=== PATIENT | female | born 1930 | race Caucasian/White ===

== ENCOUNTER → 2016-02-27 | Outpatient (REF) | payer MEDICARE, OTHER | LOC: M LABSMT 10:33 | PROVIDERS: ATTEND Nurse Practitioner Women's Health | DX: N39.0 Urinary tract infection, site not specified (principal) ==

== ENCOUNTER → 2016-03-13 | Outpatient (REF) | payer MEDICARE, OTHER ==
[2016-03-14 12:04] LABS: CALCIUM LEVEL 10.1 MG/DL (8.8-10.2); CREATININE FOR GFR 1.98 MG/DL (0.55-1.02); GLOMERULAR FILTRATION RATE 25.6 (>32); PHOSPHORUS LEVEL 2.6 MG/DL (2.5-4.9); POTASSIUM SERUM 4.5 MEQ/L (3.5-5.1)
== END ==
LOC: M SFHCCLAY 14:43
PROVIDERS: ATTEND Family Medicine
DX: E11.40 Type 2 diabetes mellitus with diabetic neuropathy, unspecified (principal)
CPT/HCPCS: 80069; 83036; G0463

== ENCOUNTER → 2016-04-15 | Outpatient (CLI) | payer MEDICARE, BC, OTHER ==
--- NOTE | 2016-04-15 17:06 | REP ---
BILATERAL MAMMOGRAM WITH DIAGNOSTIC MAMMOGRAM, LEFT BREAST AND LEFT BREAST ULTRASOUND: Bilateral mammogram and diagnostic mammogram left breast and left breast ultrasound. Bilateral mammography performed in the MLO and CC projections. COMPARISON: 12/25/2010. There appears to be a new spiculated nodule in the upper outer quadrant of the left breast. This measures approximately 1.6 cm in diameter. This is at the site of a reported palpable abnormality. No other definite suspicious mass is seen. No suspicious clusters of microcalcifications are seen. Real-time sonographic evaluation of upper outer quadrant of the left breast demonstrates a solid shadowing mass with irregular margins measuring 1.7 x 1.2 x 1.3 cm. IMPRESSION: ACR 4 suspicious. Spiculated mass is seen mammographically at the site of the reported palpable abnormality. This is also seen by ultrasound. Recommend ultrasound guided biopsy. ACR 4 suspicious. B-RADS/ACR category 4 mammogram. Suspicious abnormality - biopsy should be considered. Usually requires biopsy. This mammogram was interpreted with the aid of an FDA-approved computer-aided detection system. The patient states she had a clinical breast exam in 03/2016. The patient letter being requested is M4. Signed by Benjamin Rider MD 04/16/2016 08:04 P
== END ==
LOC: M RAD 15:12
PROVIDERS: ATTEND Family Medicine
DX: N63 Unspecified lump in breast (principal)
CPT/HCPCS: 76642; G0204

== ENCOUNTER → 2016-04-25 | Outpatient (REF) | payer MEDICARE, BC, OTHER | LOC: M LAB REF 09:26 | PROVIDERS: ATTEND Surgery | DX: C50.912 Malignant neoplasm of unspecified site of left female breast (principal) ==

== ENCOUNTER 2016-05-09 09:19 | Day surgery (SDC) | payer MEDICARE, BC, OTHER ==
[~2016-05-09] VITALS: Ht 157.5 cm; Wt 64.0 kg
[~2016-05-09 09:19] MED LIST: BISO5TAB2 PO; CALC500C8 PO; CRAN500C2 PO; DITR1TAB PO; GLIP5TAB8 PO; LEVO100T5 PO; LUTE6TAB2 PO; MAGN200T PO; METF1000 PO; VITA100041 PO; XANA0.25 PO
[2016-05-09] MEDS ORDERED: LR 1,000 ML IV SCH ×4 (09:30→20:00)
[2016-05-09] MEDS ORDERED: LIDOCAINE 5% (LIDODERM) PATCH TD ONE (09:30)
[2016-05-09] MEDS ORDERED: METHYLENE BLUE 0.5% (5MG/ML) 10 ML AMP (PROVAYBLUE)(Q9968 PER 1MG) As Ordered ONE (13:14)
[2016-05-09] MEDS ORDERED: ROCURONIUM BROMIDE 50 MG/5 ML VIAL As Ordered ONE (14:15)
[2016-05-09] MEDS ORDERED: MIDAZOLAM INJ 2 MG/2 ML VIAL (J2250) As Ordered ONE (14:15)
[2016-05-09] MEDS ORDERED: LIDOCAINE 2% INJ 100 MG/5 ML SDV (FOR ANES.) As Ordered ONE (14:15)
[2016-05-09] MEDS ORDERED: fentaNYL 100 MCG/2 ML INJECTION (J3010) As Ordered ONE (14:15)
[2016-05-09] MEDS ORDERED: PROPOFOL 200 MG/20 ML VIAL As Ordered ONE (14:15)
[2016-05-09] MEDS ORDERED: ePHEDrine SULFATE 25 MG/5 ML(5MG/ML) SYRINGE As Ordered ONE (14:30)
[2016-05-09] MEDS ORDERED: NEOSTIGMINE 1MG/ML 5 ML SYRINGE (J2710) As Ordered ONE (14:56)
[2016-05-09] MEDS ORDERED: GLYCOPYRROLATE INJ 0.2 MG/ML 2 ML VIAL As Ordered ONE (14:56)
[2016-05-09] MEDS ORDERED: ONDANSETRON 4MG/2ML VIAL (J2405) As Ordered ONE (15:02)
[2016-05-09] MEDS ORDERED: HYDROmorphone HCL 2 MG/ML 1ML VIAL (J1170) As Ordered ONE (15:03)
--- NOTE | 2016-05-09 16:11 | REP ---
LEFT BREAST LYMPHOSCINTIGRAPHY: The procedure was performed under the direct supervision of Dr. Etienne. The images were reviewed with Dr. Etienne. Using topical anesthetic and sterile technique 0.985 millicuries of Technetium 99 filtered sulfur colloid was injected subdermally in 8 fractionated periareolar injections. Images obtained 1 hour after injections show gee uptake in the upper outer quadrant of the left breast. IMPRESSION: Left breast lymphoscintigraphy. There is gee uptake in the upper outer quadrant of the left breast. Reviewed by COLIN Livingston 05/09/2016 04:55 PEdited and Signed by Jimmie Etienne MD 05/09/2016 05:46 P
[2016-05-09] MEDS ORDERED: ACETAMINOPHEN TAB 650MG DOSE (2X325MG) PO PRN (16:45)
[2016-05-09] MEDS ORDERED: ONDANSETRON 4MG/2ML VIAL (J2405) IV PRN ×2 (16:45→20:00)
[2016-05-09] MEDS ORDERED: fentaNYL 100 MCG/2 ML INJECTION (J3010) IV PRN (16:45)
[2016-05-09] MEDS ORDERED: PERCOCET 5MG/325MG TAB PO PRN (16:45)
[2016-05-09] MEDS ORDERED: METOCLOPRAMIDE INJ 10MG/2ML VIAL (J2765) As Ordered ONE (17:01)
[2016-05-09] MEDS ORDERED: METOCLOPRAMIDE INJ 10MG/2ML VIAL (J2765) IV PRN (17:15)
[2016-05-09] MEDS ORDERED: NORCO, ANEXSIA 5/325MG TABLET (HYDROcodone/ACETAMINOPHEN) PO ONE (18:00)
[2016-05-09 20:30] VITALS: BP 138/63
[2016-05-09 21:00] VITALS: BP 135/63
[2016-05-09] MEDS ORDERED: HumaLOG INSULIN (NovoLOG) PER UNIT SC SCH (21:00)
[2016-05-09 22:00] VITALS: BP 112/59
[2016-05-09] MEDS ORDERED: GLUCOSE 4 GM CHEW TABLET PO PRN (22:15)
[2016-05-09] MEDS ORDERED: DEXTROSE 50% 50 ML SYRINGE IV PRN (22:15)
[2016-05-09] MEDS ORDERED: GLUCAGON FOR INJ 1 MG VIAL (J1610) SC PRN (22:15)
[2016-05-09 23:00] VITALS: BP 117/58
--- NOTE | 2016-05-09 23:00 | RO ---
DATE OF PROCEDURE: 05/09/2016 PREOPERATIVE DIAGNOSIS: Infiltrating ductal carcinoma left breast. POSTOPERATIVE DIAGNOSIS: Infiltrating ductal carcinoma left breast. PROCEDURES PERFORMED: 1. Left axillary sentinel node biopsy. 2. Left partial mastectomy. SURGEON: Emile Padron MD PATIENT ASSESSMENT COORDINATOR: Dr. Ortiz ANESTHESIA: General. INDICATIONS FOR PROCEDURE: The patient is an 85-year-old woman who was noted to have a small nodule in the upper outer quadrant of the left breast. Mammogram confirmed an irregular density in the upper outer quadrant. An ultrasound-guided biopsy confirmed infiltrating ductal carcinoma. She is now for a sentinel node biopsy with partial mastectomy. OPERATIVE PROCEDURE: Prior to going to the operating room, the patient was sent x-ray where radioactive tracer was infiltrated in a periareolar distribution. Lymphoscintigraphy was obtained. She was then transported to the operating room. She was placed under general endotracheal anesthesia. Several aliquots of a 50/50 mixture of sterile saline and 0.50% methylene blue were then infiltrated subdermally in the upper outer aspect of the areola and then also in the upper outer quadrant of the breast near the known tumor. The breast chest wall, axilla and upper extremity were then prepped and draped in a sterile fashion. Inspection with the NeoProbe revealed a single focus of increased counts in the upper anterior axilla. An approximately 2.5 to 3 cm transverse skin incision was made at this point. Guided by the NeoProbe the incision was deepened through the subcutaneous fat and the axillary fascia was opened. A small node was identified and this was removed by careful dissection with some surrounding fibrofatty tissue. Hemoclips were used as needed and avascular tissues were divided with cautery or with scissors. The node was inspected and was small, less than a centimeter and revealed a gamma count of 3947 in 10 seconds. Reinspection of the axilla revealed no other areas of increased gamma counts. The background activity was 49 in 10 seconds. This node was sent to the lab for frozen section. While awaiting the frozen section; the axillary fascia was closed with chromic. The subcutaneous tissues were closed with chromic and the skin edges were approximated with a running subcuticular #4-[address] Crane contacted me by phone to report that the node was small and revealed no metastatic disease on frozen section. Attention was turned to the partial mastectomy. The nodule was palpable at about the 1:30 to 2-o'clock position, 6-7 cm from the edge of the areola. A radially oriented skin ellipse was outlined with a skin marker. The ellipse was approximately 6 to 7 cm in length x 2 to 3 cm in width maximally. The skin was incised with a scalpel and the dissection was then carried down into the breast tissue using the needle tip cautery. Taking a wide margin of tissue on all sides, the dissection was carried deep into the breast and eventually down to the pectoral muscle. The tissues were elevated off of the underlying pectoralis major with the pectoralis fascia. Laterally, the dissection extended into the tissues lateral to the pectoral major. The nodule was clearly palpable and was completely surrounded by breast tissue. Once the specimen was removed, it was marked with the Vector margin marker system and sent for permanent pathology. The wound was inspected and hemostasis was ensured. The tissues overlying the pectoralis muscle were elevated at the level of the pectoralis fascia an additional 4 to 5 cm to provide some tissue to mobilize into the area of the partial mastectomy. The tissues were closed in their deep aspect with buried #2-0 chromic sutures. Additional chromic sutures were placed in the more superficial tissues and the skin edges were approximated with some buried #3-0 Vicryl. The edges of the skin were approximated with a running subcuticular #4-0 Vicryl and Steri-Strips were then applied to both incisions. A bulky bandage was applied. The patient tolerated the procedure well with no apparent complication. She was awakened in the operating room, extubated and moved to the recovery room in stable condition.
[2016-05-10] VITALS: BP 141/64
[2016-05-10 01:00] VITALS: BP 134/66
[2016-05-10] MEDS: NORCO, ANEXSIA 5/325MG TABLET (HYDROcodone/ACETAMINOPHEN) PO PRN ×2 (01:14→11:50)
[2016-05-10 06:00] VITALS: BP 141/65
[2016-05-10] MEDS ORDERED: LEVOTHYROXINE 0.1 MG TAB (100 MCG) PO SCH (06:00)
[2016-05-10] MEDS ORDERED: glipiZIDE (GLUCOTROL) 5 MG TAB PO SCH (07:30)
[2016-05-10] MEDS ORDERED: HumaLOG INSULIN (NovoLOG) PER UNIT SC SCH (07:30)
[2016-05-10 08:20] VITALS: BP 118/58
[2016-05-10] MEDS ORDERED: oxyBUTYnin *DITROPAN XL* 5 MG TABCR PO SCH (09:00)
[2016-05-10] MEDS ORDERED: BISOPROLOL FUMARATE 5 MG TAB PO SCH (09:00)
[2016-05-10] MEDS ORDERED: NORC1TAB4 PO (11:25)
== END 2016-05-10 12:00 | disposition home or self-care (01) ==
LOC: M SDC 09:19 → M MS5PR 20:34 → M SDC 05-10 12:00
PROVIDERS: ATTEND Surgery
DX: C50.412 Malignant neoplasm of upper-outer quadrant of left female breast (principal); Z17.0 Estrogen receptor positive status [ER+]; E11.9 Type 2 diabetes mellitus without complications; E78.00 Pure hypercholesterolemia, unspecified; E03.9 Hypothyroidism, unspecified; K21.9 Gastro-esophageal reflux disease without esophagitis; F41.9 Anxiety disorder, unspecified; Z88.8 Allergy status to other drugs, medicaments and biological substances; Z79.899 Other long term (current) drug therapy
CPT/HCPCS: 19301; 38525; 78195; 88307; 88331; A9541; J1170; J2250; J2405; J2710; J2765; J3010; Q9968

== ENCOUNTER → 2016-06-04 | Outpatient (REF) | payer MEDICARE, OTHER ==
[~2016-06-04] MED LIST changes: +NORC1TAB4 PO
[2016-06-04 19:30] LABS: CARCINOEMBRYONIC ANTIGEN 2.2 NG/ML (<2.5)
== END ==
LOC: M LAB REF 16:54
PROVIDERS: ATTEND Internal Medicine Medical Oncology
DX: C50.919 Malignant neoplasm of unspecified site of unspecified female breast (principal)

== ENCOUNTER → 2016-06-05 | Outpatient (REF) | payer MEDICARE, OTHER | LOC: M SMT 17:03 | PROVIDERS: ATTEND Nurse Practitioner Women's Health | DX: R30.0 Dysuria (principal) | CPT/HCPCS: 81001; 87088; 87186; G0463 ==

== ENCOUNTER → 2016-06-25 | Outpatient (CLI) | payer MEDICARE, BC ==
--- NOTE | 2016-06-27 14:57 | DEXA ---
AP SPINE L1 - L4 1.156 -0.3 1.6 LT FEMUR TOTAL 0.851 -1.2 1.0 RT FEMUR TOTAL 0.878 -1.1 1.2 TOTAL BODY TOTAL OTHER DUAL FEMUR FRAX* ASSESSMENT Risk factors: History of adult fracture, rheumatoid arthritis. 10 year probability of fracture Major osteoporotic fracture 32.1 % Hip fracture 11.4 % COMMENTS: Normal bone densitometry of the spine. There is low bone density of the left hip. There is low bone density of the right hip. There is degenerative change in the spine which may artificially elevate the BMD. FOLLOW-UP: Recommendation for the next bone density exam: 2 years. CHINTAN
== END ==
LOC: M WHC 14:47
PROVIDERS: ATTEND Internal Medicine Medical Oncology
DX: C50.919 Malignant neoplasm of unspecified site of unspecified female breast (principal); M85.88 Other specified disorders of bone density and structure, other site; M85.851 Other specified disorders of bone density and structure, right thigh; M85.852 Other specified disorders of bone density and structure, left thigh

== ENCOUNTER → 2016-06-26 | Outpatient (CLI) | payer MEDICARE, BC, OTHER ==
[~2016-06-26] MED LIST changes: +GASTROGRAFIN SOLUTION 30ML (Q9963) As Ordered ONE; +ISOVUE-370 76% 100ML VIAL (Q9967) As Ordered ONE
--- NOTE | 2016-06-26 11:50 | REP ---
Clinical: Breast cancer. Staging. Findings: Lung bases demonstrate chronic changes including subtle non-solid density in the left lower lobe and right lower lobe which are otherwise nonspecific. Liver, pancreas, gallbladder, bilateral adrenal glands and kidneys are relatively normal for noncontrast evaluation. The spleen demonstrates a vague 1.9 cm hypodensity which may reflect splenic cyst. The enteric system including stomach, small and large bowel is without obstruction or acute inflammatory process. Normal terminal ileum and appendix identified in the right lower quadrant. Scattered colonic diverticula noted without acute diverticulitis. Pelvis demonstrates normal bladder with small amount of gas which may be related to prior Turner catheterization as well as age-appropriate uterus/adnexa. No ascites. No free air. No significant adenopathy. No obvious abdominal pelvic mass lesion. Atherosclerotic changes of the aorta noted without aneurysm. Musculoskeletal structures demonstrate age-related degenerative changes without obvious osseous mass lesion/metastases. Impression: 1. Subtle non solid density in the left lower lobe and smaller non solid density in the right lower lobe are nonspecific and may warrant 3-6 months follow-up. 2. 1.9 cm splenic hypodensity likely cyst may be evaluated by ultrasound. 3. Colonic diverticula without acute diverticulitis. 4. No ascites, mass lesion or adenopathy. Signed by Eral Monaco MD 06/26/2016 11:42 A
--- NOTE | 2016-06-26 11:55 | REP ---
Clinical: Breast cancer. Staging. Comparison: None. Findings: The lung feliz demonstrate scattered chronic age-related changes primarily noted at the bilateral bases including right middle lobe and lingula. No consolidation, discrete nodule or mass lesion is appreciated. However, subtle scattered non solid ground-glass densities measuring roughly up to 1.5 cm in the left lower lobe are identified and while these likely represent chronic change, active pathology cannot be excluded. No pleural effusion/reaction. No pneumothorax. Tracheobronchial tree is patent. Mediastinum demonstrates atherosclerotic changes and mild ectasia to the thoracic aorta along with mild cardiomegaly and atherosclerotic changes of the coronary arteries. No pericardial effusion. No axillary, hilar, or mediastinal adenopathy. Musculoskeletal structures demonstrate age-related degenerative changes without definite osseous metastatic disease. Impression: 1. Subtle scattered chronic age-related changes. 2. Very subtle a few non solid ground-glass densities likely represent associated chronic changes although given the patient's diagnosis follow-up examination in 3-6 months may be warranted. Signed by Earl Monaco MD 06/26/2016 11:47 A
== END ==
LOC: M RAD 09:05
PROVIDERS: ATTEND Internal Medicine Medical Oncology
DX: C50.912 Malignant neoplasm of unspecified site of left female breast (principal)
CPT/HCPCS: 71250; 74176; Q9963

== ENCOUNTER → 2016-06-27 | Outpatient (CLI) | payer MEDICARE, BC, OTHER ==
[~2016-06-27] MED LIST changes: -GASTROGRAFIN SOLUTION 30ML (Q9963) As Ordered ONE; -ISOVUE-370 76% 100ML VIAL (Q9967) As Ordered ONE
--- NOTE | 2016-06-28 13:52 | RADONC ---
RADIATION ONCOLOGY CONSULTATION NOTE DATE: 06/27/2016 CHART NUMBER: [id number] DIAGNOSIS: Left breast cancer. STAGE: IA, [id number]. ECOG PERFORMANCE STATUS: 0. CONSULTATION NOTE: Ms. Aquino is a very pleasant 85-year-old white female with the diagnosis of a stage IA, [id number], well-differentiated infiltrating ductal carcinoma of the left breast who is presenting to us today status post lumpectomy and sentinel lymph node biopsy for consideration of postoperative radiation therapy for conservative breast management. HISTORY OF PRESENT ILLNESS: The patient was in the usual state of health until April of this year when she noticed a small lump in her left breast in the upper outer quadrant. A mammogram was done on 04/15/2016 as well as an ultrasound which revealed a 1.6 cm mass in the upper outer quadrant. On 05/09/2016 the patient underwent lumpectomy and sentinel lymph node biopsy. Pathology revealed a 1.4 cm well-differentiated infiltrating ductal carcinoma of the left breast. All margins of resection were negative. There was no lymph vascular invasion seen. The tumor was estrogen receptor and progesterone receptor positive and HER2 negative. There was no in situ component found. One sentinel lymph node was sampled and it was negative for malignancy. The patient has done well since surgery and was seen by Dr. Easley, the medical oncologist, for his expert opinion. She has been given hormonal therapy. She is now presenting to me for discussion of possible postoperative radiation therapy. IMAGING: I have personally reviewed the patients CT scans of the chest, abdomen and pelvis done on 06/26/2016 which showed some scattered chronic changes and a few ground-glass densities in the lung. I let the patient know that a routine followup was recommended for 3-6 months. This will be followed by Dr. Easley. I had a lengthy discussion with the patient with regards to external beam radiation therapy. We discussed logistics of treatment planning, simulation and subsequent fractionated daily radiation treatments. We discussed the potential benefits as well as possible acute and chronic sequelae of external beam radiation therapy. We discussed the more recent national comprehensive cancer network recommendations and guidelines. I have given the patient a copy of the guidelines which report that breast irradiation may be omitted in patients greater than 70 years of age with estrogen receptor positive, clinically node negative, T1 tumors who receive adjuvant endocrine therapy. This category includes this patient. She therefore may chose to omit radiation. Indeed the recommendation is for the patient's over 70 and this patient is actually 85 years old. The patient is aware that if she omits radiation close followup with her medical oncologist is indicated. Of course she will be having that follow-up nonetheless since she is receiving her endocrine therapy and is being followed for her CAT scan reports. I did make the patient aware that since radiation is the established standard of care following lumpectomy that we are available to her should she choose radiation. In light of this, I have not set this patient up for any followup in our office or initiation of treatment planning. At the conclusion of a consultation that took more than an hour the patient has decided at this point not to pursue radiation and to continue with her endocrine therapy. She is aware that she can contact me should she change her mind. cc: MD Obinna Lu MD
== END ==
LOC: M ONCR 13:14
PROVIDERS: ATTEND Radiology Radiation Oncology
DX: C50.912 Malignant neoplasm of unspecified site of left female breast (principal)

== ENCOUNTER → 2016-07-24 | Outpatient (REF) | payer MEDICARE, BC, OTHER ==
[~2016-07-24] MED LIST changes: -METF1000 PO; +METF10004 PO; +VITA-182 PO; -VITA100041 PO
[2016-07-25 12:05] LABS: CALCIUM LEVEL 9.3 MG/DL (8.8-10.2); CREATININE FOR GFR 1.81 MG/DL (0.55-1.02); GLOMERULAR FILTRATION RATE 28.4 (>32); POTASSIUM SERUM 4.1 MEQ/L (3.5-5.1)
== END ==
LOC: M SFHCCLAY 15:43
PROVIDERS: ATTEND Family Medicine
DX: E11.9 Type 2 diabetes mellitus without complications (principal); N18.3 Chronic kidney disease, stage 3 (moderate)
CPT/HCPCS: 36415; 80048; 83036; G0463

== ENCOUNTER → 2016-08-20 | Outpatient (REF) | payer MEDICARE, OTHER | LOC: M LABSMT 13:41 → M LABDRAWC 13:44 | PROVIDERS: ATTEND Nurse Practitioner Women's Health | DX: R30.0 Dysuria (principal) ==

== ENCOUNTER → 2016-09-18 | Outpatient (REF) | payer MEDICARE, OTHER ==
[2016-09-18 20:30] LABS: MICROSCOPIC INDICATED? MAN YES (NO)
[2016-09-18 21:23] LABS: SQUAMOUS EPITHELIAL CELL URINE LARGE AMOUNT /hpf (SMALL AMT); TRANSITIONAL EPI CELLS, URINE MOD AMOUNT /hpf; WBC, URINE TNTC /hpf (0-3)
[2016-09-18 21:24] LABS: BACTERIA, URINE LARGE AMOUNT; HYALINE CAST, URINE NONE SEEN /lpf (0-1); MICROSCOPIC EXAM PERFORMED
== END ==
LOC: M LABSMT 10:11
PROVIDERS: ATTEND Nurse Practitioner Women's Health
DX: N39.0 Urinary tract infection, site not specified (principal)

== ENCOUNTER → 2016-10-09 | Outpatient (REF) | payer MEDICARE, BC, OTHER ==
[2016-10-10 12:25] LABS: ALBUMIN 3.4 GM/DL (3.2-5.2); ALBUMIN/GLOBULIN RATIO 0.87 (1.00-1.93); BILIRUBIN,TOTAL 0.3 MG/DL (0.2-1.0); CALCIUM LEVEL 9.9 MG/DL (8.8-10.2); CREATININE FOR GFR 2.17 MG/DL (0.55-1.02); GLOMERULAR FILTRATION RATE 22.9 (>32); POTASSIUM SERUM 4.6 MEQ/L (3.5-5.1); TOTAL PROTEIN 7.3 GM/DL (6.4-8.2)
[2016-10-10 12:29] LABS: BASO # 0.1 K/mm3 (0.0-0.2); BASO % 0.8 % (0.0-1.0); EOS # 0.5 K/mm3 (0.0-0.50); EOS % 5.3 % (0.0-3.0); LARGE UNSTAINED CELL # 0.1 K/mm3 (0.0-0.4); LARGE UNSTAINED CELL % 0.9 % (0.0-4.0); LYMPH # 1.7 K/mm3 (1.5-4.5); LYMPH % 15.5 % (24.0-44.0); MEAN CORPUSCULAR HEMOGLOBIN 31.3 pg (27.0-33.0); MEAN CORPUSCULAR HGB CONC 32.5 g/dl (32.0-36.5); MEAN CORPUSCULAR VOLUME 96.4 fl (80.0-96.0); MONO # 0.3 K/mm3 (0.0-0.8); MONO % 3.4 % (0.0-5.0); NEUTROPHILS # 7.5 K/mm3 (1.8-7.7); NEUTROPHILS % 74.1 % (36.0-66.0); PLATELET COUNT, AUTOMATED 294 k/mm3 (150-450); RED CELL DISTRIBUTION WIDTH 13.9 % (11.5-14.5); WHITE BLOOD COUNT 10.1 K/mm3 (4.0-10.0)
== END ==
LOC: M SFHCCLAY 14:42
PROVIDERS: ATTEND Family Medicine
DX: R46.2 Strange and inexplicable behavior (principal); E11.9 Type 2 diabetes mellitus without complications; E03.9 Hypothyroidism, unspecified
CPT/HCPCS: 80053; 83036; 84443; 85025; G0463

== ENCOUNTER → 2016-10-11 | Outpatient (CLI) | payer MEDICARE, BC, OTHER ==
--- NOTE | 2016-10-11 20:29 | REP ---
MR BRAIN WITHOUT CONTRAST: HISTORY: Altered mental status. Areas of increased signal intensity on T2 weighted images are present in the right basal ganglia. These represent old lacunar infarctions. Areas of increased signal intensity on T2 weighted images are present in the periventricular and subcortical white matter. This represents small vessel ischemic disease. A 7 mm focus of increased signal intensity on T2 weighted images is present in the cerebellar vermis. There is no intraparenchymal hemorrhage, acute infarct or midline shift. The ventricular system and cortical sulci are dilated consistent with moderate volume loss. There is no extracerebral collection. The sinuses are clear. IMPRESSION:1. 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 2. Small vessel ischemic disease. 3. There is a 7 mm focus of increased signal intensity in the cerebellar vermis. This may represent an area of small vessel ischemic disease , however , a small mass can not be excluded. Contrast enhanced MR is recommended for further evaluation. 4. Moderate volume loss. Signed by Esdras Peter MD 10/15/2016 08:18 A
== END ==
LOC: M RAD 15:06
PROVIDERS: ATTEND Family Medicine
DX: R40.4 Transient alteration of awareness (principal); Z86.73 Personal history of transient ischemic attack (TIA), and cerebral infarction without residual deficits; I67.82 Cerebral ischemia

== ENCOUNTER → 2016-10-28 | Outpatient (CLI) | payer MEDICARE, BC ==
--- NOTE | 2016-10-28 15:58 | REP ---
Right hand four views: There is no acute fracture or dislocation. 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 Mineralization is normal. There are no foreign bodies or calcifications.
== END ==
LOC: M CLY 15:13
PROVIDERS: ATTEND Family Medicine
DX: M19.041 Primary osteoarthritis, right hand (principal)
CPT/HCPCS: 73130; G0463

== ENCOUNTER → 2016-11-20 | Outpatient (REF) | payer MEDICARE, OTHER ==
[2016-11-20 18:52] LABS: CALCIUM LEVEL 10.2 MG/DL (8.8-10.2); CREATININE FOR GFR 2.02 MG/DL (0.55-1.02); FREE T4 1.49 NG/DL (0.76-1.46); GLOMERULAR FILTRATION RATE 24.9 (>32)
== END ==
LOC: M SFHCCLAY 13:14
PROVIDERS: ATTEND Family Medicine
DX: N18.3 Chronic kidney disease, stage 3 (moderate) (principal); E03.9 Hypothyroidism, unspecified

== ENCOUNTER → 2017-01-14 | Outpatient (REF) | payer MEDICARE, OTHER ==
[2017-01-14 18:19] LABS: CALCIUM LEVEL 9.6 MG/DL (8.8-10.2); CREATININE FOR GFR 1.94 MG/DL (0.55-1.02); GLOMERULAR FILTRATION RATE 26.1 (>32); POTASSIUM SERUM 4.3 MEQ/L (3.5-5.1)
== END ==
LOC: M SFHCCLAY 10:05
PROVIDERS: ATTEND Family Medicine
DX: E11.9 Type 2 diabetes mellitus without complications (principal)

== ENCOUNTER → 2017-02-17 | Outpatient (REF) | payer MEDICARE, OTHER ==
[2017-02-18 07:18] LABS: CARCINOEMBRYONIC ANTIGEN 2.6 NG/ML (<2.5)
[2017-02-19 08:16] LABS: CA 27.29 49.4 U/mL (0.0-38.6)
== END ==
LOC: M LAB REF 18:09
DX: C50.019 Malignant neoplasm of nipple and areola, unspecified female breast (principal)
CPT/HCPCS: 82378

== ENCOUNTER → 2017-02-19 | Outpatient (REF) | payer MEDICARE, OTHER | LOC: M SFHCCLAY 15:51 | DX: E11.9 Type 2 diabetes mellitus without complications (principal); R30.0 Dysuria | CPT/HCPCS: 87186 ==

== ENCOUNTER → 2017-04-02 | Outpatient (REF) | payer MEDICARE, OTHER ==
[2017-04-03 12:27] LABS: ANION GAP 7 MEQ/L (8-16); BLOOD UREA NITROGEN 40 MG/DL (7-18); CARBON DIOXIDE LEVEL 23 MEQ/L (21-32); CHLORIDE LEVEL 111 MEQ/L (98-107); CREATININE FOR GFR 2.16 MG/DL (0.55-1.30); GLOMERULAR FILTRATION RATE 23.1 (>32); GLUCOSE, FASTING 272 MG/DL (70-100); POTASSIUM SERUM 3.9 MEQ/L (3.5-5.1); SODIUM LEVEL 141 MEQ/L (136-145)
[2017-04-03 12:28] LABS: ALBUMIN 3.9 GM/DL (3.2-5.2); CALCIUM LEVEL 9.3 MG/DL (8.8-10.2); PHOSPHORUS LEVEL 3.3 MG/DL (2.5-4.9)
== END ==
LOC: M SFHCCLAY 15:42
DX: N18.3 Chronic kidney disease, stage 3 (moderate) (principal)
CPT/HCPCS: 80069

== ENCOUNTER → 2017-05-27 | Outpatient (CLI) | payer MEDICARE, OTHER | LOC: M RAD 13:57 | DX: Z12.39 Encounter for other screening for malignant neoplasm of breast (principal); C50.412 Malignant neoplasm of upper-outer quadrant of left female breast | CPT/HCPCS: 77066 ==

== ENCOUNTER → 2017-06-06 | Outpatient (REF) | payer MEDICARE, OTHER ==
[2017-06-06 16:48] LABS: ESTIMATED AVERAGE GLUCOSE 223 MG/DL (60-110); HEMOGLOBIN A1c 9.4 %
[2017-06-06 17:03] LABS: ALBUMIN 3.7 GM/DL (3.2-5.2); ALBUMIN/GLOBULIN RATIO 0.95 (1.00-1.93); ALKALINE PHOSPHATASE 199 U/L (45-117); ALT/SGPT 19 U/L (12-78); ANION GAP 7 MEQ/L (8-16); AST/SGOT 11 U/L (7-37); BILIRUBIN,TOTAL 0.3 MG/DL (0.2-1.0); BLOOD UREA NITROGEN 33 MG/DL (7-18); CALCIUM LEVEL 9.6 MG/DL (8.8-10.2); CARBON DIOXIDE LEVEL 24 MEQ/L (21-32); CHLORIDE LEVEL 108 MEQ/L (98-107); FREE T4 0.31 NG/DL (0.76-1.46); GLOMERULAR FILTRATION RATE 21.5 (>32); GLUCOSE, FASTING 241 MG/DL (70-100); POTASSIUM SERUM 4.4 MEQ/L (3.5-5.1); SODIUM LEVEL 139 MEQ/L (136-145); TOTAL PROTEIN 7.6 GM/DL (6.4-8.2)
== END ==
LOC: M SFHCCLAY 13:37
DX: I10 Essential (primary) hypertension (principal); E11.9 Type 2 diabetes mellitus without complications; E03.9 Hypothyroidism, unspecified
CPT/HCPCS: 84443

== ENCOUNTER → 2017-07-04 | Outpatient (REF) | payer MEDICARE, OTHER | LOC: M SFHCCLAY 14:26 | DX: N30.00 Acute cystitis without hematuria (principal) | CPT/HCPCS: 87186 ==

== ENCOUNTER → 2017-10-23 | Outpatient (REF) | payer MEDICARE, OTHER | LOC: M SFHCWAGY 17:19 | DX: N30.00 Acute cystitis without hematuria (principal) | CPT/HCPCS: 87186 ==

== ENCOUNTER → 2018-02-16 | Outpatient (REF) | payer MEDICARE, OTHER ==
[~2018-02-16] MED LIST changes: +LEVO125T4 PO
[2018-02-16 17:16] LABS: ALBUMIN 3.5 GM/DL (3.2-5.2); BILIRUBIN,TOTAL 0.4 MG/DL (0.2-1.0); CALCIUM LEVEL 9.4 MG/DL (8.8-10.2); CREATININE FOR GFR 1.92 MG/DL (0.55-1.30); FREE T4 1.34 NG/DL (0.76-1.46); GLOMERULAR FILTRATION RATE 26.4 (>32); POTASSIUM SERUM 4.3 MEQ/L (3.5-5.1); THYROID STIMULATING HORMONE 0.189 uIU/ML (0.358-3.740); TOTAL PROTEIN 7.3 GM/DL (6.4-8.2)
[2018-02-16 18:28] LABS: HEMOGLOBIN A1c 9.7 %
== END ==
LOC: M SFHCCLAY 10:17
PROVIDERS: ATTEND Family Medicine
DX: E11.9 Type 2 diabetes mellitus without complications (principal); E03.9 Hypothyroidism, unspecified

== ENCOUNTER → 2018-04-29 | Outpatient (REF) | payer MEDICARE, OTHER | LOC: M SFHCCLAY 11:22 | PROVIDERS: ATTEND Family Medicine | DX: N30.00 Acute cystitis without hematuria (principal) ==

== ENCOUNTER → 2018-06-02 | Outpatient (CLI) | payer MEDICARE, BC, OTHER ==
[~2018-06-02] MED LIST changes: -NORC1TAB4 PO; +NORC1TAB7 PO
--- NOTE | 2018-06-02 15:04 | REPMRS ---
Patient History The patient states she had a clinical breast exam in February 2018.Family history of ovarian cancer at age 55 in daughter. Malignant ultrasound-guided core biopsy of the left breast, April 25, 2016. 3D TOMOSYNTHESIS WAS PERFORMED. Digital Mammo Screening Bilat: June 02, 2018 - Exam #: [id number] Bilateral CC and MLO view(s) were taken. Technologist: Gabrielle Jacobson, Technologist Prior study comparison: May 27, 2017, digital mammo diagnostic bilateral performed at [facility]. April 15, 2016, digital mammo diagnostic bilateral performed at [facility]. FINDINGS: There are scattered fibroglandular densities. There has been no change in the appearance of the mammogram from the prior studies. There is a mild amount of residual fibroglandular tissue which is fairly symmetric. There is no interval development of dominant mass, architectural distortion, or clustered microcalcification suggestive of malignancy. Assessment: BI-RADS/ACR category 1 mammogram. Negative Mammogram. Recommendation Routine screening mammogram in 1 year (for women over age 40). This mammogram was interpreted with the aid of an FDA-approved computer-aided dectection system. Electronically Signed By: Benjamin Rider MD 06/02/18 [id number]
== END ==
LOC: M RAD 13:21
PROVIDERS: ATTEND Internal Medicine Hematology & Oncology
DX: Z12.31 Encounter for screening mammogram for malignant neoplasm of breast (principal); Z85.3 Personal history of malignant neoplasm of breast

== ENCOUNTER → 2018-08-26 | Outpatient (REF) | payer MEDICARE, OTHER ==
[~2018-08-26] MED LIST changes: +CALC500T60 PO; +CRANPOW2 XX
[2018-08-27 12:23] LABS: ALBUMIN 3.6 GM/DL (3.2-5.2); BILIRUBIN,TOTAL 0.3 MG/DL (0.2-1.0); CALCIUM LEVEL 10.1 MG/DL (8.8-10.2); CREATININE FOR GFR 2.18 MG/DL (0.55-1.30); FREE T4 1.05 NG/DL (0.76-1.46); GLOMERULAR FILTRATION RATE 22.8 (>32); POTASSIUM SERUM 4.4 MEQ/L (3.5-5.1); THYROID STIMULATING HORMONE 0.556 uIU/ML (0.358-3.740); TOTAL PROTEIN 7.2 GM/DL (6.4-8.2)
[2018-08-27 13:19] LABS: HEMOGLOBIN A1c 9.5 %
== END ==
LOC: M SFHCCLAY 13:54
PROVIDERS: ATTEND Family Medicine
DX: E11.9 Type 2 diabetes mellitus without complications (principal); E03.9 Hypothyroidism, unspecified

== ENCOUNTER 2018-11-03 17:57 | Emergency (ER) | payer MEDICARE, OTHER ==
[2018-11-03 18:22] LABS: BASO # 0.1 10^3/uL (0.0-0.2); BASO % 0.6 % (0.0-1.0); EOS # 0.2 10^3/uL (0.0-0.5); EOS % 1.9 % (0.0-3.0); HEMATOCRIT 45.4 % (36.0-47.0); HEMOGLOBIN 14.9 g/dl (12.0-15.5); LYMPH # 1.6 10^3/uL (1.5-5.0); LYMPH % 19.8 % (24.0-44.0); MEAN CORPUSCULAR HEMOGLOBIN 30.3 pg (27.0-33.0); MEAN CORPUSCULAR HGB CONC 32.8 g/dl (32.0-36.5); MEAN CORPUSCULAR VOLUME 92.3 fl (80.0-96.0); MONO # 0.4 10^3/uL (0.0-0.8); MONO % 4.7 % (0.0-5.0); NEUTROPHILS # 5.8 10^3/uL (1.5-8.5); NEUTROPHILS % 72.7 % (36.0-66.0); PLATELET COUNT, AUTOMATED 248 10^3/uL (150-450); RED BLOOD COUNT 4.92 10^6/uL (4.00-5.40); WHITE BLOOD COUNT 7.9 10^3/uL (4.0-10.0)
[2018-11-03] MEDS ORDERED: HEPARIN DRIP 25,000 UNITS in IV 1 EA IV SCH (18:27)
[2018-11-03] MEDS ORDERED: CLOPIDOGREL 300 MG TAB (PLAVIX) PO STA (18:27)
--- NOTE | 2018-11-03 18:29 | REP ---
Portable chest x-ray: Single view. History: Chest pain. Findings: There are old healed rib fractures on the right. There is diffuse osteopenia. EKG monitoring electrodes are seen. Heart is not enlarged. The aorta is calcific. Pulmonary vasculature is not increased. No focal infiltrate is seen. Impression: No active disease. Old healed right-sided rib fractures. Osteoporosis. Electronically Signed by Petar Caraballo MD 11/03/2018 06:20 P
[2018-11-03] MEDS ORDERED: HEPARIN SOD (PORCINE) 5000 UNITS/ML VIAL IV ONE (18:30)
[2018-11-03 18:35] LABS: INR 0.95; PARTIAL THROMBOPLASTIN TIME 28.7 SECONDS (25.0-38.4); PROTHROMBIN TIME 12.4 SECONDS (11.8-14.0)
[2018-11-03 18:53] LABS: CALCIUM LEVEL 10.4 MG/DL (8.8-10.2); CK-MB VALUE MASS 1.4 NG/ML (<3.6); CREATININE FOR GFR 1.99 MG/DL (0.55-1.30); GLOMERULAR FILTRATION RATE 25.2 (>32); MB/CK RELATIVE INDEX 4.52 (< OR =4); POTASSIUM SERUM 4.2 MEQ/L (3.5-5.1); TROPONIN I 0.06 NG/ML (< 0.10)
[2018-11-03 19:15] VITALS: BP 168/76
--- NOTE | 2018-11-04 20:35 | ECGEPIP ---
[facility] - ED Test Date: 2018-11-03 Pat Name: PETER DA SILVA Department: Room: - Gender: Female Project Landscape Architect: TC : [id number] Requested By: SUZY Flores Order Number: [id number] Reading MD: Josefina Jean Baptiste Measurements Intervals [place] Rate: 82 P: 38 UT: 176 QRS: 22 QRSD: 110 T: 50 QT: 379 QTc: 444 Interpretive Statements SINUS RHYTHM INFERIOR MYOCARDIAL INFARCTION, ACUTE AK CLINICAL CORRELATION Electronically Signed on 11-04-2018 20:35:37 EDT by Josefina Jean Baptiste
== END 2018-11-03 19:17 | disposition short-term general hospital (02) ==
LOC: M ED 17:57
DX: I21.3 ST elevation (STEMI) myocardial infarction of unspecified site (principal); E11.9 Type 2 diabetes mellitus without complications; I10 Essential (primary) hypertension; E78.5 Hyperlipidemia, unspecified; Z88.5 Allergy status to narcotic agent; Z88.8 Allergy status to other drugs, medicaments and biological substances; Z79.899 Other long term (current) drug therapy; Z79.84 Long term (current) use of oral hypoglycemic drugs

== ENCOUNTER → 2018-11-18 | Outpatient (REF) | payer MEDICARE, OTHER | LOC: M SFHCCLAY 12:53 | PROVIDERS: ATTEND Family Medicine | DX: R30.0 Dysuria (principal) | CPT/HCPCS: 87088; 87186; G0463 ==

== ENCOUNTER → 2018-11-20 | Outpatient (REF) | payer MEDICARE, OTHER ==
[2018-11-20 17:47] LABS: CALCIUM LEVEL 10.1 MG/DL (8.8-10.2); CREATININE FOR GFR 2.06 MG/DL (0.55-1.30); GLOMERULAR FILTRATION RATE 24.2 (>32); POTASSIUM SERUM 3.8 MEQ/L (3.5-5.1)
== END ==
LOC: M LABDRAWC 16:15
PROVIDERS: ATTEND Internal Medicine Interventional Cardiology
DX: N18.9 Chronic kidney disease, unspecified (principal); E11.9 Type 2 diabetes mellitus without complications

== ENCOUNTER → 2019-01-01 | Outpatient (REF) | payer MEDICARE, OTHER | LOC: M SFHCCLAY 16:22 | PROVIDERS: ATTEND Family Medicine | DX: R39.15 Urgency of urination (principal); Z23 Encounter for immunization | CPT/HCPCS: 81002; 87088; 87186; 90682; G0008; G0463 ==

== ENCOUNTER → 2019-01-04 | Outpatient (REF) | payer MEDICARE, OTHER | LOC: M SFHCCLAY 07:08 | PROVIDERS: ATTEND Family Medicine | DX: R39.15 Urgency of urination (principal) ==

== ENCOUNTER → 2019-01-25 | Outpatient (CLI) | payer MEDICARE, BC, OTHER ==
--- NOTE | 2019-01-25 14:57 | REP ---
URINARY TRACT SONOGRAPHY: HISTORY: Chronic kidney disease stage IV. FINDINGS: Scanning at the level of the urinary bladder shows no abnormality. Emptying ureteral jets are confirmed on color Doppler interrogation of the bladder lumen bilaterally. Renal cortical echogenicity pattern is increased bilaterally, consistent with chronic medical renal disease. There is no evidence of hydronephrosis on either side. There is a 0.9 x 1.1 x 0.9 cm cyst in the lower pole of the right kidney. No renal mass or calculus is seen. Right renal dimensions are 8.9 x 4.5 x 3.5 cm. The left kidney measures 9.5 x 4.0 x 4.4 cm. IMPRESSION: Increased renal cortical echogenicity pattern consistent with chronic medical renal disease. Small cyst lower pole right kidney. No hydronephrosis. Electronically Signed by Petar Caraballo MD 01/25/2019 03:33 P
== END ==
LOC: M RAD 13:48
PROVIDERS: ATTEND Internal Medicine Nephrology
DX: N18.4 Chronic kidney disease, stage 4 (severe) (principal)

== ENCOUNTER → 2019-07-08 | Outpatient (REF) | payer MEDICARE, OTHER | LOC: M LAB REF 18:18 | PROVIDERS: ATTEND Internal Medicine Nephrology | DX: N39.0 Urinary tract infection, site not specified (principal) ==

== ENCOUNTER → 2019-10-07 | Outpatient (REF) | payer MEDICARE, OTHER ==
[2019-10-07 20:20] LABS: ALBUMIN 3.2 GM/DL (3.2-5.2); BILIRUBIN,TOTAL 0.6 MG/DL (0.2-1.0); CALCIUM LEVEL 9.7 MG/DL (8.8-10.2); CREATININE FOR GFR 1.77 MG/DL (0.55-1.30); FREE T4 1.8 NG/DL (0.76-1.46); GLOMERULAR FILTRATION RATE 28.8 (>32); POTASSIUM SERUM 4.4 MEQ/L (3.5-5.1); THYROID STIMULATING HORMONE 0.157 uIU/ML (0.358-3.740); TOTAL PROTEIN 7.5 GM/DL (6.4-8.2)
== END ==
LOC: M LAB REF 19:13
PROVIDERS: ATTEND Nurse Practitioner Family
DX: E11.9 Type 2 diabetes mellitus without complications (principal)

== ENCOUNTER → 2020-06-06 | Outpatient (REF) | payer MEDICARE, OTHER ==
[2020-06-07 11:33] LABS: BASO # 0.1 10^3/uL (0.0-0.2); BASO % 1.2 % (0.0-1.0); EOS # 0.3 10^3/uL (0.0-0.5); EOS % 5.3 % (0.0-3.0); HEMATOCRIT 43.5 % (36.0-47.0); HEMOGLOBIN 13.9 g/dl (12.0-15.5); LYMPH # 1.3 10^3/uL (1.5-5.0); LYMPH % 22.5 % (24.0-44.0); MEAN CORPUSCULAR HEMOGLOBIN 30.8 pg (27.0-33.0); MEAN CORPUSCULAR VOLUME 96.5 fl (80.0-96.0); MONO # 0.7 10^3/uL (0.0-0.8); MONO % 11.4 % (2.0-8.0); NEUTROPHILS # 3.5 10^3/uL (1.5-8.5); NEUTROPHILS % 59.3 % (36.0-66.0); PLATELET COUNT, AUTOMATED 128 10^3/uL (150-450); RED BLOOD COUNT 4.51 10^6/uL (4.00-5.40); WHITE BLOOD COUNT 5.9 10^3/uL (4.0-10.0)
[2020-06-07 12:01] LABS: HEMOGLOBIN A1c 7.6 %
[2020-06-07 12:13] LABS: ALBUMIN 3.4 GM/DL (3.2-5.2); BILIRUBIN,TOTAL 0.3 MG/DL (0.2-1.0); CALCIUM LEVEL 10.3 MG/DL (8.8-10.2); CREATININE FOR GFR 2.24 MG/DL (0.55-1.30); FREE T4 0.39 NG/DL (0.76-1.46); POTASSIUM SERUM 5.7 MEQ/L (3.5-5.1); THYROID STIMULATING HORMONE 59.9 uIU/ML (0.358-3.740); TOTAL PROTEIN 6.8 GM/DL (6.4-8.2)
== END ==
LOC: M SFHCCLAY 14:00
PROVIDERS: ATTEND Nurse Practitioner Family
DX: E03.9 Hypothyroidism, unspecified (principal); I12.9 Hypertensive chronic kidney disease with stage 1 through stage 4 chronic kidney disease, or unspecified chronic kidney disease; E11.9 Type 2 diabetes mellitus without complications; N18.4 Chronic kidney disease, stage 4 (severe)
CPT/HCPCS: 80053; 83036; 84439; 84443; 85025; G0463

== ENCOUNTER → 2020-06-13 | Outpatient (REF) | payer MEDICARE, OTHER ==
[2020-06-13 18:53] LABS: APPEARANCE, URINE CLOUDY (CLEAR); BACTERIA, URINE AUTO 1+ (NEGATIVE); BILIRUBIN, URINE AUTO NEGATIVE (NEGATIVE); BLOOD, URINE BLOOD 1+ (NEGATIVE); COLOR, URINE YELLOW (YELLOW); GLUCOSE, URINE (UA) AUTO 3+ mg/dL (NEGATIVE); KETONE, URINE AUTO NEGATIVE (NEGATIVE); LEUKOCYTE ESTERASE, URINE AUTO 3+ (NEGATIVE); MUCUS, URINE SMALL (NEGATIVE); NITRITE, URINE AUTO NEGATIVE (NEGATIVE); PROTEIN, URINE AUTO 2+ mg/dL (NEGATIVE); RBC, URINE AUTO 8 /HPF (0-3); SPECIFIC GRAVITY URINE AUTO 1.013 (1.002-1.035); SQUAMOUS EPITHELIAL CELL UR AU 2 /HPF (0-6); UROBILINOGEN, URINE AUTO 0.2 mg/dL (0.0-2.0); WBC, URINE AUTO 37 /HPF (0-3)
== END ==
LOC: M SFHCCLAY 15:43
PROVIDERS: ATTEND Nurse Practitioner Family
DX: R30.0 Dysuria (principal)

== ENCOUNTER → 2020-09-04 | Outpatient (REF) | payer MEDICARE, OTHER | LOC: M LAB REF 17:51 | PROVIDERS: ATTEND Internal Medicine Nephrology | DX: N18.4 Chronic kidney disease, stage 4 (severe) (principal); E83.42 Hypomagnesemia ==

== ENCOUNTER → 2020-10-19 | Outpatient (REF) | payer MEDICARE, OTHER ==
[2020-10-20 12:13] LABS: FREE T4 1.42 NG/DL (0.76-1.46); THYROID STIMULATING HORMONE 0.47 uIU/ML (0.358-3.740)
== END ==
LOC: M SFHCCLAY 14:52
PROVIDERS: ATTEND Nurse Practitioner Family
DX: I10 Essential (primary) hypertension (principal); E11.9 Type 2 diabetes mellitus without complications; E03.9 Hypothyroidism, unspecified; N18.4 Chronic kidney disease, stage 4 (severe); R41.3 Other amnesia; R26.89 Other abnormalities of gait and mobility
CPT/HCPCS: 84439; 84443; G0463

== ENCOUNTER → 2021-06-29 | Outpatient (REF) | payer MEDICARE, OTHER ==
[~2021-06-29] MED LIST changes: +BISO1TAB18 PO; -BISO5TAB2 PO
== END ==
LOC: M SFHCCLAY 13:41
PROVIDERS: ATTEND Nurse Practitioner Family
DX: R15.9 Full incontinence of feces (principal)